=== PATIENT | female | born 1980 | race Caucasian/White ===

== ENCOUNTER → 2018-04-04 | Outpatient (CLI) | payer OTHER ==
--- NOTE | 2018-04-04 16:49 | RAD ---
Three-view left ankle study INDICATIONS: Fall. Ankle pain. FINDINGS: Medial soft tissue swelling is evident. No acute fracture or dislocation or osteolytic process is seen. The mortise ankle joint is intact. IMPRESSION: No acute fracture. Electronically signed by: Peter Castellon MD (04/04/2018 4:45 PM) [facility]
== END | disposition home or self-care (01) ==
LOC: RAD 16:11
PROVIDERS: ATTEND Family Medicine
DX: M25.472 Effusion, left ankle (principal)
CPT/HCPCS: 73610

== ENCOUNTER → 2018-07-13 | Outpatient (CLI) | payer OTHER ==
--- NOTE | 2018-07-13 08:56 | RAD ---
Exam : Lumbar spine 07/13/2018. Comparison: None available Indication: Low back pain radiating to the left side. No recent injury. Findings: 4 views of the lumbar spine demonstrate no acute fracture or subluxation. There are five lumbar type vertebral bodies. The alignment is within normal limits. The vertebral bodies demonstrate normal height. The intervertebral disc spaces are well maintained. Mild sclerosis of the pars interarticularis at L5 without defect. Mild facet arthropathy. Impression: No significant spondylolisthesis or spondylolysis. Electronically signed by: Shreya Palumbo MD (07/13/2018 8:52 AM) [id number]
== END | disposition home or self-care (01) ==
LOC: PMG 08:19
PROVIDERS: ATTEND Registered Nurse
DX: M12.88 Other specific arthropathies, not elsewhere classified, other specified site (principal)
CPT/HCPCS: 72110

== ENCOUNTER → 2018-07-14 | Outpatient (CLI) | payer OTHER ==
--- NOTE | 2018-07-14 11:28 | RAD ---
Complete abdominal ultrasound History: Intermittent pain for about a year.. Findings: Aorta: No evidence of aneurysm. Inferior vena cava: Patent Pancreas: Unremarkable Liver: Unremarkable and not enlarged Gallbladder: No evidence of cholelithiasis, gallbladder wall thickening or pericholecystic fluid. Bile ducts: No evidence of dilatation Right kidney: 10.2 cm length. Renal pyramids are slightly prominent, but no focal lesion or hydronephrosis. Left kidney: 10.1 cm length. No evidence of hydronephrosis. Spleen: Not enlarged Impression: No significant sonographic abnormality. Electronically signed by: Anthony Baez MD (07/14/2018 11:24 AM) [id number]
== END | disposition home or self-care (01) ==
LOC: US 09:11
PROVIDERS: ATTEND Registered Nurse
DX: R10.11 Right upper quadrant pain (principal)
CPT/HCPCS: 76700